=== PATIENT | male | born 1965 | race Hispanic/Latino ===

== ENCOUNTER 2016-10-07 20:02 | Emergency (ER) | payer SELFPAY ==
[2016-10-07 20:03] VITALS: BMI 30.7
[2016-10-07 21:32] VITALS: BP 154/92; PULSE 98; RESP 16; TEMP 98.2; O2SAT 96
--- NOTE | 2016-10-08 04:25 | C.PDOC ---
History Of Present Illness Patient left without being seen. Chief Complaint (Nursing): Psychiatric Evaluation Past Medical History Vital Signs: Last Vital Signs Temp 98.2 F 10/07/16 21:26 Pulse 98 H 10/07/16 21:26 Resp 16 10/07/16 21:26 BP 154/92 H 10/07/16 21:26 Pulse Ox 96 10/08/16 04:25 - Medical History PMH: Fractures (rt heel), Hypothyroidism - [facility] Procedures APPLICATION OF SPLINT (07/18/05) OTHER SKIN & SUBQ I D (01/04/15) Family History: States: Unknown Family Hx - Social History Hx Tobacco Use: Yes Hx Alcohol Use: No Hx Substance Use: Yes - Immunization History Hx Influenza Vaccination: No ED Course And Treatment O2 Sat by Pulse Oximetry: 96 Medical Decision Making Medical Decision Making: Patient left without being seen. Disposition - Disposition Disposition: LEFT W/O BEING SEEN - ER ONLY Disposition Time: 21:45 Condition: STABLE - Clinical Impression Clinical Impression: Patient left without being seen
== END 2016-10-07 22:21 | disposition left against medical advice (07) ==
LOC: C.ER 20:02
DX: Z00.8 Encounter for other general examination (principal); Z02.9 Encounter for administrative examinations, unspecified